=== PATIENT | female | born 1970 | race American Indian/Alaskan Native ===

== ENCOUNTER 2017-05-08 00:40 | Inpatient (IN) | payer MEDICAID, OTHER ==
--- NOTE | 2017-05-08 01:00 | C.PDOC ---
History Of Present Illness 46 year old female with Hx of depression and SI is transferred from [facility] for psychiatric admission. Per the medical records at [place] patient presented to the ED with SI. Patient reported that indeations began today, reporting a plan to drink antifreeze. Patient reports similar ideations in the past. Patient denies any injuries at this time. Patient denies HI, hallucinations, and all other complaints at this time. Time Seen by Provider: 05/08/17 00:56 Chief Complaint (Nursing): Psychiatric Evaluation History Per: Other ([facility]) History/Exam Limitations: no limitations Onset/Duration Of Symptoms: Hrs Current Symptoms Are (Timing): Still Present Suicide/Self Injury Attempted (Context): Ingestion Modifying Factor(s): None Associated Symptoms: Depression, Suicidal Thoughts, Suicidal Plan Involuntary Hold By: None Recent travel outside of the [place]: No Additional History Per: EMS, Other ([facility]) Past Medical History Reviewed: Historical Data, Nursing Documentation, Vital Signs Vital Signs: Last Vital Signs Temp 98.8 F 05/08/17 00:42 Pulse 65 05/08/17 00:42 Resp 20 05/08/17 00:42 BP 110/74 05/08/17 00:42 Pulse Ox 100 05/08/17 01:04 - Medical History PMH: Depression Surgical History: Appendectomy, Cholecystectomy Family History: States: Unknown Family Hx - Social History Hx Alcohol Use: Yes Hx Substance Use: Yes - Immunization History Hx Tetanus Toxoid Vaccination: No Hx Influenza Vaccination: No Hx Pneumococcal Vaccination: No Review Of Systems Constitutional: Negative for: Fever, Chills Cardiovascular: Negative for: Chest Pain, Palpitations Respiratory: Negative for: Cough, Shortness of Breath Gastrointestinal: Negative for: Nausea, Vomiting, Abdominal Pain Musculoskeletal: Negative for: Back Pain Skin: Negative for: Rash Neurological: Negative for: Weakness, Numbness, Headache, Dizziness Psych: Positive for: Depression, Suicidal ideation Physical Exam - Physical Exam Appears: Non-toxic, Other (anxious) Skin: Normal Color, Warm, Dry Head: Atraumatic, Normacephalic Eye(s): bilateral: Normal Inspection, PERRL, EOMI Nose: No Discharge, No Deformity Oral Mucosa: Moist Neck: Normal ROM, Supple Chest: Symmetrical Cardiovascular: Rhythm Regular, No Murmur Respiratory: Normal Breath Sounds, No Rales, No Rhonchi, No Wheezing Gastrointestinal/Abdominal: Soft, No Tenderness, No Distention, No Rebound Extremity: Normal ROM, No Pedal Edema, No Calf Tenderness, No Deformity, No Swelling Neurological/Psych: Oriented x3, Normal Speech, Normal Cognition, Other (having thoughts of suicide) Gait: Steady ED Course And Treatment O2 Sat by Pulse Oximetry: 100 (On RA) Pulse Ox Interpretation: Normal Medical Decision Making Medical Decision Making: Patient is transferred from [place] for admission to [facility]. Disposition - Disposition Forms: [employer] (Occ[place]) - Scribe Statement The provider has reviewed the documentation as recorded by the Scribe Saúl Can All medical record entries made by the Scribe were at my direction and personally dictated by me. I have reviewed the chart and agree that the record accurately reflects my personal performance of the history, physical exam, medical decision making, and the department course for this patient. I have also personally directed, reviewed, and agree with the discharge instructions and disposition.
--- NOTE | 2017-05-08 01:43 | PCM.BM ---
<Mayuri Puente - Last Filed: 05/08/17 01:41> Treatment Plan Problems - Problems identified on initial assessmt Suicidal Ideation Date Initiated: 05/08/17 Time Initiated: 01:30 Assessment reference: NA Status: Active Depression Date Initiated: 05/08/17 Time Initiated: 01:30 Assessment reference: NA Status: Active Substance Abuse Date Initiated: 05/08/17 Time Initiated: 01:30 Assessment reference: NA Status: Active Treatment assets and liabiliti Patient Assests: cooperative, ADL independent, negotiates basic needs, cognitively intact Patient Liabilities: financial problems, relationship conflicts, substance abuse - Milieu Protocol Maintain good personal hygiene: daily Encourage regular showers, daily Remind patient to perform daily oral care, daily Assist patient to perform ADL's Conduct patient checks and document Observation sheet: Q15 minutes Maintain personal safety: every shift Educate patient to report safety concerns to staff, every shift Monitor environment for contraband/sharps Medication safety: Monitor for expected outcome, potential side effects: every shift, Assess barriers to learning: every shift, Assess readiness for medication education: every shift <Jennifer Echeverria - Last Filed: 05/09/17 10:52> Family Contact Family involvement: Famliy/SO not involved - Goals for Treatment Patient goals for treatment: "I need a place to live." Discharge/Continuing Care - Education Needs Education Needs: Patient Medication, Patient Coping Skills, Patient Placement options, Patient Community resources - Discharge Discharge Criteria: Tolerates medication w/o severe side effects, Free of Suicidal thoughts, No longer exhibiting s/s of withdrawal Discharge to:: Home - Treatment Team Participation Discussed with Family/SO: No Was Patient/Family/SO present at Treatment Team Meeting: Yes <Diya Pickett - Last Filed: 05/09/17 13:24> - Diagnosis (1) Depression, major, severe recurrence Status: Acute Interventions: 05/09/17 13:24 * Assess/adjust medications daily and /or as needed * See patient on an individual basis 7x/week to assess symptoms of depression * Monitor for side effects & effectiveness of medications * (2) Cocaine use disorder, severe, dependence Status: Acute Interventions: 05/09/17 13:24 * Assess 7x/week regarding severity of withdrawal * Educate regarding risks, benefits, side effects and alternatives of medications * Use Motivational Interviewing for abstinence * Use CBT for relapse prevention * Medication management for withdrawal symptoms * Encourage medication assisted treatment *
--- NOTE | 2017-05-08 16:46 | PCM.PSYCH ---
Initial Psychiatric Evaluation - Initial Psychiatric Evaluation Type of Admission: Voluntary Legal Status: Capacity Chief Complaint (in patient's own words): "I'm depressed" History of Present Illness and Precipitating Events: This is a 46 yo AAF with no medical history and was transferred from [facility] to our inpatient unit for depression and SI. Pt is unemployed, homeless, lost her apartment adn her belonging. Pt. reproted depressed mood, anhedonia, insomnia, weight loss, psychomotor agitation, psychomotor retardation , fatigue, guilt, recurrent thoughts of with the plan drink antifreeze. Pt stated that after admission to inpatient unit she is feeling safe and contracted for safety. She also reported that she had recent breakup with her BF. She reported that she is smoking crack since age of 25 on daily basis. Patient denied anxiety issues when she goes out of the home. She denied panic attack symptoms. Pt. denied any periods of abnormally & persistent elevated expansive or irritable mood and persistently increased goal-directed activity or energy, for 1-weeks duration present most of the day nearly every day. He denied any grandiosity, increased talkativeness, flight of ideas, racing thoughts, distractibility, or increase in goal directed activities; so there is no concern of kyle Pt. stated that she had paranoid delusions, that unknown people will hurt her. She denied hallucinations, ideas of reference. No disorganization of speech, or catatonic behavior observed. There is no concern for perceptual disturbances. Pt. denied sexual abuse in the past. Current Medications: Active Medications Generic Name Dose Route Start Last Admin Trade Name Freq PRN Reason Stop Dose Admin Aripiprazole 5 mg 05/08/17 12:15 05/08/17 13:11 Abilify PO 5 mg DAILY ANASTACIO Administration Bupropion HCl 100 mg 05/08/17 18:00 Wellbutrin PO BID ANASTACIO Emollient Ointment 0 gm 05/08/17 13:17 Vaseline Oint TOP Q3H PRN Dry skin Gabapentin 100 mg 05/08/17 14:00 05/08/17 13:11 Neurontin PO 100 mg TID ANASTACIO Administration Hydroxyzine HCl 25 mg 05/08/17 12:04 Atarax PO Q6 PRN Anxiety Pneumococcal Polyvalent Vaccine 0.5 ml 05/11/17 10:00 Pneumovax 23 Vaccine IM 05/11/17 10:01 .ONCE ONE Past Psychiatric History - Past Psychiatric History Previous Treatment History: Inpatient Prior Psychiatric Treatment: multiple admission in the past including [facility] for depression Explanation of prior treatment: psychotropic meds including remeron, effexor, prozac, risperal etc History of Abuse: denied History of ETOH/Drug Use: She reported smoking crack started at the age of 21, multiple relapse. Last relapse around 2 months ago after breakup with NF, lost of housing, etc History of Family Illness: mother= depression Pertinent Medical Hx (Current Medical&Sleep Prob, Allergies): Allergies Allergy/AdvReac Type Severity Reaction Status Date / Time No Known Allergies Allergy Unverified 05/08/17 00:49 Effexor 05/08/17 Review of Systems - Review of Systems All systems: reviewed and no additional remarkable complaints except (Psych history) Mental Status Examination - Personal Presentation Personal Presentation: Looks older than stated age, Dressed appropriate to season - Affect Affect: Constricted, Depressed - Motor Activity Motor Activity: Calm, Psychomotor Agitation - Reliability in Providing Information Reliability in Providing Information: Good - Speech Speech: Organized - Mood Mood: Depressed - Formal Thought Process Formal Thought Process: No Impairment - Hallucinations/Delusions Hallucinations: Other (denied) Delusions: Other (denied) - Obsessions/Compulsions Obsessions: No Compulsions: No - Cognitive Functions Orientation: Person, Place, Situation, Time Sensorium: Alert Attention/Concentration: Attentive Abstract Thinking: [place] Estimate of Intelligence: Average Judgement: Intact, as evidence by: Good judgement, Intact, as evidence by: Insight regarding need for hospitalization Memory: Recent intact, as evidence by: Ability to recall events of the day - Risk Risk: Suicidal (but no intent or plan) - Strength & Assets Inventory Strength & Assets Inventory: Intelligence, Family support, Education, Employment history, Skills, Cooperative - Limitations Limitations: Other (chronic drugs use) DSM 5 DX - DSM 5 DSM 5 Diagnosis: MDD recurrent severe, with psychotic features Cocaine use d/o severe, dependence, etc - Recommended/Plan of Treatment Treatment Recommendations and Plan of Treatment: Continue current management and medications. Patient educated about risks, benefits, side effects & alternatives of meds. Pt verbalized understanding & agreed with the above.~ Therapy in milieu. Supportive therapy was provided Projected ELOS: 5-7 days Discharge Plan and Discharge Criteria: after stabilization on meds and therapy. - Smoking Cessation Smoking Cessation Initiated: Yes
[2017-05-08] MEDS: Petrolatum Oint Foilpak (5 gm) TOP PRN (17:37)
--- NOTE | 2017-05-09 10:46 | PCM.PYCHPN ---
Psychiatric Progress Note - Psychiatric Progress Note Patient seen today, length of contact: 18 min Patient Chief Complaint: "I am confused" Problems Identified/Issues Discussed: The pt is seen, chart reviewed, case discussed with staff. Support given, CBT and [place] used briefly No new symptoms reported, improving very slowly and needs more time No SEs from medications, risks discussed. However, she is very picky on meds and refused some She is fixated on her homelessness situation and looks clearly anxious After care discussed Medication Change: Yes (rosa m and jinny) Medical Record Reviewed: Yes Mental Status Examination - Cognitive Function Orientation: Person, Place, Situation, Time Memory: Intact Attention: Poor Concentration: Poor Association: WNL Fund of Knowledge: WNL - Mood Mood: Depressed - Affect Affect: Constricted, Depressed - Speech Speech: Appropriate - Formal Thought Process Formal Thought Process: No Impairment - Suicidal Ideation Suicidal Ideation: No - Homicidal Ideation Homicidal Ideation: No Goal/Treatment Plan - Goal/Treatment Plan Need for Continued Stay: Discharge may exacerbated symptoms, Severe functional impairment Progress Toward Problem(s) and Goals/Treatment Plan: Continue medications Support and psychoeducation daily Attend groups and activities daily After care planning by IJEOMA
--- NOTE | 2017-05-10 13:04 | PCM.PYCHPN ---
Psychiatric Progress Note - Psychiatric Progress Note Patient seen today, length of contact: 15 min Patient Chief Complaint: "I am depressed" Problems Identified/Issues Discussed: The pt is seen, chart reviewed, case discussed with staff. Support given, CBT and [place] used briefly No new symptoms reported, improving slowly and needs more time No SEs from medications, risks discussed. After care discussed, wants rehab She is low [place] and evasive Medication Change: No Medical Record Reviewed: Yes Mental Status Examination - Cognitive Function Orientation: Person, Place, Situation, Time Memory: Intact Attention: Poor Concentration: Poor Association: WNL Fund of Knowledge: WNL - Mood Mood: Depressed - Affect Affect: Constricted, Depressed - Speech Speech: Appropriate - Formal Thought Process Formal Thought Process: No Impairment - Suicidal Ideation Suicidal Ideation: No - Homicidal Ideation Homicidal Ideation: No Goal/Treatment Plan - Goal/Treatment Plan Need for Continued Stay: Discharge may exacerbated symptoms, Severe functional impairment Progress Toward Problem(s) and Goals/Treatment Plan: Continue medications Support and psychoeducation daily Attend groups and activities daily After care planning by IJEOMA
[2017-05-10 13:55] LABS: EOS # 0.3 K/uL (0.0-0.7); EOS % 5.9 % (0.0-4.0); HEMATOCRIT 34.6 % (34.0-47.0); LYMPH % 40.5 % (20.0-40.0); MEAN CELL VOLUME 88.5 fL (81.0-99.0); MEAN CORPUSCULAR HEMOGLOBIN 29.1 pg (27.0-31.0); MEAN CORPUSCULAR HGB CONC 32.8 g/dL (33.0-37.0); MEAN PLATELET VOLUME 8.3 fL (7.2-11.7); MONO # 0.5 K/uL (0.0-0.8); MONO % 11.2 % (0.0-10.0); RED CELL DISTRIBUTION WIDTH 16.2 % (11.5-14.5); WHITE BLOOD COUNT 4.9 K/uL (4.8-10.8)
[2017-05-10 14:07] LABS: ALKALINE PHOSPHATASE 58 U/L (38-126); ALT/SGPT 36 U/L (9-52); AST/SGOT 16 U/L (14-36); BILIRUBIN,TOTAL 0.6 mg/dL (0.2-1.3); BLOOD UREA NITROGEN 12 mg/dL (7-17); CALCIUM 8.4 mg/dl (8.6-10.4); CARBON DIOXIDE 30 mmol/L (22-30); CHLORIDE 98 mmol/L (98-107); GFR AFRICAN-AMERICAN > 60; GLUCOSE,RANDOM 77 mg/dL (65-105); POTASSIUM 3.8 mmol/L (3.6-5.2); SODIUM 134 mmol/L (132-148); TOTAL PROTEIN 7.6 g/dL (6.3-8.3)
[2017-05-10 14:15] LABS: RBC URINE 1 /hpf (0-3); URINE BILIRUBIN NEGATIVE (NEGATIVE); URINE BLOOD NEGATIVE (NEGATIVE); URINE COLOR Straw (YELLOW); URINE GLUCOSE (UA) NORMAL (Normal); URINE KETONE NEGATIVE (NEGATIVE); URINE LEUKOCYTE ESTERASE NEG Leu/uL (Negative); URINE PROTEIN NEGATIVE (NEGATIVE); URINE UROBILINOGEN NORMAL mg/dL (0.2-1.0); WBC URINE 1 /hpf (0-5)
[2017-05-10 14:39] LABS: THYROID STIMULATING HORMONE 1.37 mIU/L (0.46-4.68)
[2017-05-10] MEDS: Petrolatum Oint Foilpak (5 gm) TOP PRN (19:03)
[2017-05-11] MEDS ORDERED: Influenza Vaccine 60 mcg/0.5 mL SYR (4YR UP) IM ONE (10:00)
[2017-05-11] MEDS ORDERED: Pneumococcal 23-Valent Vaccine IM ONE (10:00)
--- NOTE | 2017-05-11 18:00 | PCM.PYCHPN ---
Psychiatric Progress Note - Psychiatric Progress Note Patient seen today, length of contact: 16 min Patient Chief Complaint: "Better" Problems Identified/Issues Discussed: The pt is seen, chart reviewed, case discussed with staff. Support given, CBT and [place] used briefly again No new symptoms reported, improving slowly and needs more time No SEs from medications, risks discussed. After care discussed, still interested in rehab but would skip if she could get housing secured. [place] used re relapse risk Medication Change: Yes (meds increased) Medical Record Reviewed: Yes Mental Status Examination - Cognitive Function Orientation: Person, Place, Situation, Time Memory: Intact Attention: Poor Concentration: Poor Association: WNL Fund of Knowledge: WNL - Mood Mood: Depressed - Affect Affect: Constricted, Depressed - Speech Speech: Appropriate - Formal Thought Process Formal Thought Process: No Impairment - Suicidal Ideation Suicidal Ideation: No - Homicidal Ideation Homicidal Ideation: No Goal/Treatment Plan - Goal/Treatment Plan Need for Continued Stay: Discharge may exacerbated symptoms, Severe functional impairment Progress Toward Problem(s) and Goals/Treatment Plan: Continue medications Support and psychoeducation daily Attend groups and activities daily After care planning by IJEOMA - referred to some rehabs
--- NOTE | 2017-05-12 14:20 | PCM.PYCHPN ---
Psychiatric Progress Note - Psychiatric Progress Note Patient seen today, length of contact: 16 min Patient Chief Complaint: "Abdominal pain, real bad" Problems Identified/Issues Discussed: The pt is seen, chart reviewed, case discussed with staff. The pt is compliant with medications and reports no side-effects. Symptoms are improving but needs more time to stabilize. After care discussed, support and psychoeducation given. Medication Change: No Medical Record Reviewed: Yes Mental Status Examination - Cognitive Function Orientation: Person, Place, Situation, Time Memory: Intact Attention: Poor Concentration: Poor Association: WNL Fund of Knowledge: WNL - Mood Mood: Depressed - Affect Affect: Constricted, Depressed - Speech Speech: Appropriate - Formal Thought Process Formal Thought Process: No Impairment - Suicidal Ideation Suicidal Ideation: No - Homicidal Ideation Homicidal Ideation: No Goal/Treatment Plan - Goal/Treatment Plan Need for Continued Stay: Discharge may exacerbated symptoms, Severe functional impairment Progress Toward Problem(s) and Goals/Treatment Plan: Continue medications Support and psychoeducation daily Attend groups and activities daily After care planning by SW - referred to some rehabs, ie [facility]
--- NOTE | 2017-05-12 17:16 | US ---
HISTORY: Patient has lower abdomen pain COMPARISON: None available. TECHNIQUE: Real-time transabdominal pelvic ultrasound was performed. In addition a transvaginal pelvic ultrasound was necessary to better depict pelvic anatomy. FINDINGS: UTERUS: Measures 10.2 x 5.3 x 6.2 cm. Anteverted. 0.9 x 0.9 x 1.1 cm mid tiny uterine fibroid. ENDOMETRIUM: Measures 6 mm in diameter. CERVIX: No cervical abnormality identified. RIGHT OVARY: Measures 3.9 x 2.8 x 3.6 cm. Blood flow is demonstrated. LEFT OVARY: Measures 3.6 x 2.1 x 2.6 cm. Blood flow is demonstrated. FREE FLUID: No significant free fluid noted. OTHER FINDINGS: None. IMPRESSION: Tiny probable uterine fibroid measures approximately 1.1 cm, mid uterus.
[2017-05-13] MEDS ORDERED: Ergocalciferol 50,000 Intl Units Cap PO SCH (10:00)
--- NOTE | 2017-05-13 12:32 | PCM.PYCHPN ---
Psychiatric Progress Note - Psychiatric Progress Note Patient seen today, length of contact: 16 min Patient Chief Complaint: "Nervous about what I will do" Problems Identified/Issues Discussed: The pt is seen, chart reviewed, case discussed with staff. Support given, CBT and [place] used briefly No new symptoms reported, improving slowly and needs more time No SEs from medications, risks discussed. After care discussed - rehab pending still no news yet. She is Ok with waiting as she is still depressed. She will look into staying with her father if she cannot go to a rehab Medication Change: No Medical Record Reviewed: Yes Mental Status Examination - Cognitive Function Orientation: Person, Place, Situation, Time Memory: Intact Attention: Poor Concentration: Poor Association: WNL Fund of Knowledge: WNL - Mood Mood: Depressed - Affect Affect: Constricted, Depressed - Speech Speech: Appropriate - Formal Thought Process Formal Thought Process: No Impairment - Suicidal Ideation Suicidal Ideation: No - Homicidal Ideation Homicidal Ideation: No Goal/Treatment Plan - Goal/Treatment Plan Need for Continued Stay: Discharge may exacerbated symptoms, Severe functional impairment Progress Toward Problem(s) and Goals/Treatment Plan: Continue medications Support and psychoeducation daily Attend groups and activities daily After care planning by SW - referred to some rehabs, ie [facility]
--- NOTE | 2017-05-14 14:52 | PCM.PYCHPN ---
Psychiatric Progress Note - Psychiatric Progress Note Patient seen today, length of contact: 16 min Patient Chief Complaint: "I'm feeling better " Problems Identified/Issues Discussed: Patient was seen. Chart was reviewed important content noted. Nurse input received the patient is doing better and has no issues. Patient has no new complaints. No events overnight. Patient slept well and is eating well. Patient denies any depressive symptoms. Denies suicidal or homicidal ideations. Patient reports improvement in hallucinations. No delusions elicited. No paranoia elicited. Patient has remained in good clinical and behavioral control. Symptoms are improving, but needs more time to stabilize. Patient is finding medications beneficial and would like to continue with treatment plan. Patient appreciated that treatment team is trying to help. Medical Problems: psychotropic meds including remeron, effexor, prozac, risperal etc Medication Change: No Medical Record Reviewed: Yes Mental Status Examination - Cognitive Function Orientation: Person, Place, Situation, Time Memory: Intact Attention: Poor Concentration: Poor Association: WNL Fund of Knowledge: WNL - Mood Mood: Depressed - Affect Affect: Constricted, Depressed - Speech Speech: Appropriate - Formal Thought Process Formal Thought Process: Hallucinations Psychotic Thoughts and Behaviors: Patient reported improvement in auditory hallucinations Additional comments: Calm and cooperative, fair grooming - Suicidal Ideation Suicidal Ideation: No - Homicidal Ideation Homicidal Ideation: No Goal/Treatment Plan - Goal/Treatment Plan Need for Continued Stay: Discharge may exacerbated symptoms, Severe functional impairment Progress Toward Problem(s) and Goals/Treatment Plan: Continue current management and medications. Patient educated about risks, benefits, side effects & alternatives of meds. Pt verbalized understanding & agreed with the above.~ Therapy in milieu. Supportive therapy was provided Estimated Date of D/C: 05/17/17 - Smoking Cessation Smoking Cessation Initiated: Yes
--- NOTE | 2017-05-15 12:25 | PCM.PYCHPN ---
Psychiatric Progress Note - Psychiatric Progress Note Patient seen today, length of contact: 16 min Patient Chief Complaint: "I still have back pain" Problems Identified/Issues Discussed: The pt is seen, chart reviewed, case discussed with staff. She is somatically preoccupied, thinks she has a lump in her back. She doesn't. She was previously focused on lower abd pain, for which USG done and now it's gone She is accepted by [facility] for Tuesday admission Support given, [place] used Still odd, depressed but not suicidal Medication Change: Yes (flexeril) Medical Record Reviewed: Yes Mental Status Examination - Cognitive Function Orientation: Person, Place, Situation, Time Memory: Intact Attention: Poor Concentration: Poor Association: WNL Fund of Knowledge: WNL - Mood Mood: Depressed - Affect Affect: Constricted, Depressed - Speech Speech: Appropriate - Formal Thought Process Formal Thought Process: No Impairment - Suicidal Ideation Suicidal Ideation: No - Homicidal Ideation Homicidal Ideation: No Goal/Treatment Plan - Goal/Treatment Plan Need for Continued Stay: Discharge may exacerbated symptoms, Severe functional impairment Progress Toward Problem(s) and Goals/Treatment Plan: Continue medications Support and psychoeducation daily Attend groups and activities daily Transfer to [facility] Estimated Date of D/C: 05/17/17
--- NOTE | 2017-05-16 18:00 | PCM.PYCHPN ---
Psychiatric Progress Note - Psychiatric Progress Note Patient seen today, length of contact: 16 min Patient Chief Complaint: "I'm feeling better" Problems Identified/Issues Discussed: Patient was seen. Chart was reviewed important content noted. Nurse input received the patient is doing better and has no issues. Patient has no new complaints. No events overnight. Pt is preoccupied with somatic complaints. Pt rescind her 48 hour signout notice. Pt wants to be d/c by tomorrow. she is [facility] and she wants to start it by Tuesday. She wants to d/c to her father home. Patient slept well and is eating well. Patient denies any depressive symptoms. Denies suicidal or homicidal ideations. Patient reports improvement in hallucinations. No delusions elicited. No paranoia elicited. Patient has remained in good clinical and behavioral control. Symptoms are improving, but needs more time to stabilize. Patient is finding medications beneficial and would like to continue with treatment plan. Patient appreciated that treatment team is trying to help. Medical Problems: psychotropic meds including remeron, effexor, prozac, risperal etc Medication Change: Yes (flexeril) Medical Record Reviewed: Yes Mental Status Examination - Cognitive Function Orientation: Person, Place, Situation, Time Memory: Intact Attention: WNL Concentration: WNL Association: WNL Fund of Knowledge: [facility] Decription of patient's judgement and insights: fair/fair Addtional comments: cooperative - Mood Mood: Anxious - Affect Affect: Constricted, Depressed - Speech Speech: Appropriate - Formal Thought Process Formal Thought Process: No Impairment Psychotic Thoughts and Behaviors: denied - Suicidal Ideation Suicidal Ideation: No Plan: denied - Homicidal Ideation Homicidal Ideation: No Plan: denied Goal/Treatment Plan - Goal/Treatment Plan Need for Continued Stay: Discharge may exacerbated symptoms, Severe functional impairment Progress Toward Problem(s) and Goals/Treatment Plan: Continue current management and medications. Patient educated about risks, benefits, side effects & alternatives of meds. Pt verbalized understanding & agreed with the above.~ Therapy in milieu. Supportive therapy was provided Plan to d/c tomorrow after obtaining collateral history from father Estimated Date of D/C: 05/17/17 - Smoking Cessation Smoking Cessation Initiated: Yes
[2017-05-17 06:06] VITALS: BP 118/73; PULSE 76; RESP 20; TEMP 97.9; O2SAT 97
--- NOTE | 2017-05-17 14:49 | PCM.PYCHDC ---
Mental Status Examination - Mental Status Examination Orientation: Person, Place, Situation, Time Memory: Intact Mood: Neutral Affect: Other (Appropriate) Speech: Appropriate Attention: WNL Concentration: WNL Association: WNL Fund of Knowledge: WNL Formal Thought Process: No Impairment Description of patient's judgement and insight: Fair Psychotic Thoughts and Behaviors: None Suicidal Ideation: No Current Homicidal Ideation?: No Discharge Summary - Discharge Note Reason for Hospitalization: Major depressive disorder recurrent with psychotic features Cocaine use disorder severe Laboratory Data: Reviewed Consultations:: List each consultation separately and include: 1. Reason for request. 2. Findings. 3. Follow-up Summary of Hospital Course include:: 1. Description of specific treatment plan utilized for patients during their course of treatmen. 2. Summarize the time- course for resolution of acute symptoms and/or regressed behaviors. 3. Describe issues identified and worked on during hospitalization. 4. Describe medication utilized. 5. Describe medical problems identified and treated. 6. Reassessment of suicide risk Summary of Hospital Course: This is a 46 yo AAF with no medical history and was transferred from [facility] to our inpatient unit for depression and SI. Pt is unemployed, homeless, lost her apartment adn her belonging. Pt. reproted depressed mood, anhedonia, insomnia, weight loss, psychomotor agitation, psychomotor retardation , fatigue, guilt, recurrent thoughts of with the plan drink antifreeze. Pt stated that after admission to inpatient unit she is feeling safe and contracted for safety. She also reported that she had recent breakup with her BF. She reported that she is smoking crack since age of 25 on daily basis. Patient denied anxiety issues when she goes out of the home. She denied panic attack symptoms. Pt. denied any periods of abnormally & persistent elevated expansive or irritable mood and persistently increased goal-directed activity or energy, for 1-weeks duration present most of the day nearly every day. He denied any grandiosity, increased talkativeness, flight of ideas, racing thoughts, distractibility, or increase in goal directed activities; so there is no concern of kyle Pt. stated that she had paranoid delusions, that unknown people will hurt her. She denied hallucinations, ideas of reference. No disorganization of speech, or catatonic behavior observed. There is no concern for perceptual disturbances. Pt. denied sexual abuse in the past. While in the hospital patient was treated with Abilify, mirtazapine, gabapentin , trazodone and other when necessary medications. With the above treatment and other therapy on the unit patient started feeling better. Patient signed 48 hour notice for discharge ending today. Today patient was stable for discharge. At the time of evaluation and discharge, patient was awake alert oriented 3, had no delusions, no auditory or visual hallucinations , no suicidal ideations or homicidal ideations. Patient was discharged in a stable condition. Patient will [facility] after discharge from the hospital. - Final Diagnosis (DSM 5) Condition upon Discharge: GOOD Disposition: HOME/ ROUTINE Prescriptions/Medication Reconciliation: ARIPiprazole [Abilify] 10 mg PO DAILY #30 tab Gabapentin [Neurontin] 300 mg PO TID #90 cap Mirtazapine [Remeron] 30 mg PO HS #30 tab traZODone [Desyrel] 50 mg PO HS PRN #30 tab PRN Reason: Insomnia - Smoking Cessation Smoking Cessation Medication prescribed: Yes - Antipsychotic Medications Pt discharged on 2 or more routine antipsychotic medications: No
== END 2017-05-17 12:15 | disposition home or self-care (01) | DRG 430 ==
LOC: C.ER 00:40 → C.5E 00:59
DX: F33.3 Major depressive disorder, recurrent, severe with psychotic symptoms (principal); F14.20 Cocaine dependence, uncomplicated; G47.00 Insomnia, unspecified

== ENCOUNTER 2017-06-15 12:23 | Inpatient (IN) | payer MEDICAID ==
[2017-06-15 12:55] LABS: BASO # 0.1 K/uL (0.0-0.2); BASO % 1.2 % (0.0-2.0); EOS # 0.5 K/uL (0.0-0.7); EOS % 11.9 % (0.0-4.0); LYMPH # 1.7 K/uL (1.0-4.3); LYMPH % 36.5 % (20.0-40.0); MEAN CORPUSCULAR HEMOGLOBIN 29.2 pg (27.0-31.0); MEAN CORPUSCULAR HGB CONC 33.2 g/dL (33.0-37.0); MEAN PLATELET VOLUME 8.3 fL (7.2-11.7); MONO # 0.6 K/uL (0.0-0.8); MONO % 13.3 % (0.0-10.0); NEUT # 1.7 K/uL (1.8-7.0); NEUT % 37.1 % (50.0-75.0); NRBC % 0.2 % (0.0-2.0); RBC 3.75 Mil/uL (3.80-5.20); RED CELL DISTRIBUTION WIDTH 16.7 % (11.5-14.5); WHITE BLOOD COUNT 4.5 K/uL (4.8-10.8)
[2017-06-15 13:23] LABS: ALB/GLOB RATIO 1.3 (1.0-2.1); ALBUMIN 3.7 g/dL (3.5-5.0); ALT/SGPT 29 U/L (9-52); AST/SGOT 20 U/L (14-36); BLOOD UREA NITROGEN 10 mg/dL (7-17); CALCIUM 8.8 mg/dl (8.6-10.4); GFR AFRICAN-AMERICAN > 60; GFR NON-AFRICAN AMERICAN > 60
[2017-06-15] MEDS ORDERED: Naproxen 550 mg Tab PO STA (13:28)
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
[2017-06-15] MEDS ORDERED: Naproxen 550 mg Tab PO ONE (14:21)
[2017-06-15 14:44] LABS: SQUAMOUS EPITHIAL 2 /hpf (0-5); URINE BACTERIA RARE (<OCC); URINE BILIRUBIN NEGATIVE (NEGATIVE); URINE BLOOD NEGATIVE (NEGATIVE); URINE CLARITY Clear (Clear); URINE COLOR Yellow (YELLOW); URINE GLUCOSE (UA) NORMAL (Normal); URINE LEUKOCYTE ESTERASE NEG Leu/uL (Negative); URINE NITRATE NEGATIVE (NEGATIVE); URINE PROTEIN NEGATIVE (NEGATIVE)
[2017-06-15 15:00] LABS: BARBITURATES, UR NEGATIVE (NEGATIVE); BENZODIAZEPINES, UR NEGATIVE (NEGATIVE); OPIATES, UR NEGATIVE (NEGATIVE); PHENCYCLIDINE, UR NEGATIVE (NEGATIVE)
--- NOTE | 2017-06-15 19:58 | PCM.BM ---
<SharathCandace - Last Filed: 06/15/17 19:57> Treatment Plan Problems - Problems identified on initial assessmt Suicidal Ideation Date Initiated: 06/15/17 Time Initiated: 17:05 Assessment reference: NA Status: Monitor Depression Date Initiated: 06/15/17 Time Initiated: 17:05 Assessment reference: NA Status: Active Treatment assets and liabiliti Patient Assests: cooperative, ADL independent, negotiates basic needs, cognitively intact Patient Liabilities: poor support system, substance abuse (Crack cocaine) - Milieu Protocol Maintain good personal hygiene: daily Encourage regular showers, daily Remind patient to perform daily oral care Conduct patient checks and document Observation sheet: Q15 minutes Maintain personal safety: every shift Educate patient to report safety concerns to staff, every shift Monitor environment for contraband/sharps Medication safety: Monitor for expected outcome, potential side effects: every shift, Assess barriers to learning: every shift, Assess readiness for medication education: every shift <Debbie Warren - Last Filed: 06/17/17 11:08> - Diagnosis (1) Depression, major, severe recurrence Status: Acute Interventions: 06/17/17 11:07 * Assess/adjust medications daily and /or as needed * See patient on an individual basis 7x/week to assess symptoms of depression * Monitor for side effects & effectiveness of medications * (2) Cocaine use disorder, severe, dependence Status: Acute Interventions: 06/17/17 11:08 * Assess 7x/week regarding severity of withdrawal * Educate regarding risks, benefits, side effects and alternatives of medications * Use Motivational Interviewing for abstinence * Use CBT for relapse prevention * Medication management for withdrawal symptoms * Encourage medication assisted treatment * <Jennifer Echeverria - Last Filed: 06/17/17 11:13> Family Contact Family involvement: Famliy/SO not involved - Goals for Treatment Patient goals for treatment: "I need a halfway." Discharge/Continuing Care - Education Needs Education Needs: Patient Medication, Patient Coping Skills, Patient Placement options, Patient Community resources - Discharge Discharge Criteria: Tolerates medication w/o severe side effects, No longer exhibiting s/s of withdrawal, Reduction of target symptoms Discharge to:: Long Term - Treatment Team Participation Discussed with Family/SO: No Was Patient/Family/SO present at Treatment Team Meeting: Yes
--- NOTE | 2017-06-16 11:35 | PCM.PSYCH ---
Initial Psychiatric Evaluation - Initial Psychiatric Evaluation Type of Admission: Voluntary Legal Status: Capacity Chief Complaint (in patient's own words): "I wanted to hurt myself" History of Present Illness and Precipitating Events: Patient is a 47 year old AA female who was admitted for suicidal ideation and depression. She is currently single, has 3 children, and is homeless. She is unemployed. Patient states she wished to end her life because she felt hopeless. She recently became homeless. Additionally, all her personal belongings and ID were locked in her storage unit which she can not access until she pays a fee of $ 120. She states the two issues amplified her depression and made her wish to harm herself. The patient reports depressed mood, now vague thoughts of harming herself, anhedonia, insomnia, and fatigue. Patient also reports auditory hallucinations of demons speaking to her. Denies visual hallucinations, paranoia , anxiety. She contracts for safety She has battled depression ''for months." She states she has attempted suicide three times prior to this instance. She recently was hospitalized here on April 2017 for the same reason. Following discharge she stopped taking medication. Patient states she has been in and out of multiple hospitals for depression since discharge. Patient reports a history of crack cocaine use. She smokes it daily and uses " as much as I can afford." She denies opioids, benzodiazepines, alcohol, tobacco products. She has never been to a detox or rehab program in the past. Currently she reports psychomotor agitation and sweating. PMH: Denies Past psych hx: Major depressive disorder chronic. Several past admissions Family psych hx: Mother had depression Current Medications: Active Medications Generic Name Dose Route Start Last Admin Trade Name Freq PRN Reason Stop Dose Admin Acetaminophen 650 mg 06/15/17 16:40 Tylenol 325mg Tab PO Q6 PRN Fever >100.4 F Aripiprazole 10 mg 06/17/17 18:00 Abilify PO QPM ANASTACIO Gabapentin 300 mg 06/16/17 18:00 Neurontin PO BID ANASTACIO Lorazepam 1 mg 06/15/17 16:40 Ativan PO Q6 PRN Anxiety Mirtazapine 30 mg 06/16/17 22:00 Remeron PO HS ANASTACIO Trazodone HCl 50 mg 06/16/17 22:00 Desyrel PO HS PRN Insomnia Past Psychiatric History - Past Psychiatric History Previous Treatment History: Inpatient Pertinent Medical Hx (Current Medical&Sleep Prob, Allergies): Allergies Allergy/AdvReac Type Severity Reaction Status Date / Time No Known Allergies Allergy Verified 06/15/17 12:43 ARIPiprazole [Abilify] 10 mg PO DAILY #30 tab 05/17/17 Gabapentin [Neurontin] 300 mg PO TID #90 cap 05/17/17 Escitalopram [Lexapro] 10 mg PO DAILY 06/15/17 Mirtazapine [Remeron] 15 mg PO HS 06/15/17 traZODone [Desyrel] 50 mg PO HS 06/15/17 Review of Systems - Review of Systems All systems: reviewed and no additional remarkable complaints except - Constitutional Constitutional: Sweats - Musculoskeletal Musculoskeletal: absent: Muscle Weakness - Neurological Neurological: UNREMARKABLE - Psychiatric Psychiatric: Anhedonia, Auditory Hallucinations, Confusion, Depression, Hopelessness, Suicidal Ideation. absent: Anxiety, Paranoia, Visual Hallucinations Mental Status Examination - Personal Presentation Personal Presentation: Looks stated age - Affect Affect: Constricted, Depressed - Motor Activity Motor Activity: Calm - Reliability in Providing Information Reliability in Providing Information: Fair - Speech Speech: Organized - Mood Mood: Depressed - Formal Thought Process Formal Thought Process: Hallucinations - Hallucinations/Delusions Hallucinations: Auditory - Cognitive Functions Orientation: Person, Place, Situation, Time Sensorium: Alert Attention/Concentration: Attentive Abstract Thinking: [place] Estimate of Intelligence: Below average Judgement: Imparied, as evidence by: Poor judgement Memory: Recent intact, as evidence by: Ability to recall events of the day, Remote intact, as evidenced by: Abilit to recall sig. life events - Risk Risk: Diminished functioning - Strength & Assets Inventory Strength & Assets Inventory: Cooperative - Limitations Limitations: Living alone DSM 5 DX - DSM 5 DSM 5 Diagnosis: Major depressive disorder, severe, recurrent, with psychotic sxs Cocaine use disorder, severe - Recommended/Plan of Treatment Treatment Recommendations and Plan of Treatment: Abilify 10mg daily Neurontin 300mg BID Remeron 30mg at night Attend groups and activities Individual therapy Psychoeducation and support Encourage compliance with meds and after care Refer to outpatient program Teach healthy lifestyle methods, i.e. diet, exercise, meditation 32 min Projected ELOS: 7 days - Smoking Cessation Smoking Cessation Initiated: Yes
--- NOTE | 2017-06-17 10:07 | PCM.PYCHPN ---
Psychiatric Progress Note - Psychiatric Progress Note Patient seen today, length of contact: 15 min Patient Chief Complaint: I am feeling depressed.' Problems Identified/Issues Discussed: Patient seen and evaluated, chart reviewed and discussed with the nurse. She reports depressed mood, poor seep and anhidonia. Patient remained isolated, confined and withdrawn. Patient also irritability and anxiety. Patient is compliant with medications and denies any side effects. Symptoms are improving but need more time to stabilize. Support and psychoeducation given. Medication Change: No Medical Record Reviewed: Yes Mental Status Examination - Cognitive Function Orientation: Person, Place, Situation, Time Memory: Intact Attention: WNL Concentration: Poor Association: WNL Fund of Knowledge: Poor - Mood Mood: Depressed - Affect Affect: Constricted, Depressed - Speech Speech: Soft - Formal Thought Process Formal Thought Process: Hallucinations - Suicidal Ideation Suicidal Ideation: No - Homicidal Ideation Homicidal Ideation: No Goal/Treatment Plan - Goal/Treatment Plan Need for Continued Stay: Severe depression anxiety, Severe functional impairment Progress Toward Problem(s) and Goals/Treatment Plan: Major depressive disorder, severe, recurrent, with psychotic sxs Cocaine use disorder, severe Abilify 10mg daily Neurontin 300mg BID Remeron 30mg at night Attend groups and activities Individual therapy Psychoeducation and support Encourage compliance with meds and after care Refer to outpatient program Teach healthy lifestyle methods, i.e. diet, exercise, meditation - Smoking Cessation Smoking Cessation Initiated: No
--- NOTE | 2017-06-18 16:37 | PCM.PYCHPN ---
Psychiatric Progress Note - Psychiatric Progress Note Patient seen today, length of contact: 15 min Patient Chief Complaint: I'm still feeling anxious. Problems Identified/Issues Discussed: Patient seen, chart reviewed, case discussed with the staff. Issues related to illness and treatment were discussed with the patient. Reported compliant with treatment with no adverse affects. Patient reported feeling anxiety. Requesting something for anxiety. At the time of evaluation, patient was awake alert oriented 3, had no delusions , no auditory or visual hallucinations, no suicidal ideations or homicidal ideations. Aftercare discussed with the patient. Patient wants to go to [facility] for follow-up care after discharge from the hospital. Medical Problems: None reported Diagnostic Results: Reviewed DSM 5 Symptoms Update: Some improvement with treatment. Medication Change: No Medical Record Reviewed: Yes Mental Status Examination - Cognitive Function Orientation: Person, Place, Situation, Time Memory: Intact Attention: WNL Concentration: WNL Association: WN Fund of Knowledge: [facility] Decription of patient's judgement and insights: Fair - Mood Mood: Depressed, Anxious - Affect Affect: Other (Appropriate) - Speech Speech: Appropriate, Soft - Formal Thought Process Formal Thought Process: No Impairment - Suicidal Ideation Suicidal Ideation: No - Homicidal Ideation Homicidal Ideation: No Goal/Treatment Plan - Goal/Treatment Plan Need for Continued Stay: Remain at risks for inpatient hospitalization, Discharge may exacerbated symptoms, Severe functional impairment Progress Toward Problem(s) and Goals/Treatment Plan: Patient education. Supportive therapy. Continue treatment as before. Patient wants to go to [facility] for follow-up care after discharge from the hospital. Estimated Date of D/C: 06/23/17 - Smoking Cessation Smoking Cessation Initiated: No
--- NOTE | 2017-06-19 12:59 | PCM.PYCHPN ---
Psychiatric Progress Note - Psychiatric Progress Note Patient seen today, length of contact: 15 min Patient Chief Complaint: I'm still feeling much better. Problems Identified/Issues Discussed: Patient seen, chart reviewed, case discussed with the staff. Issues related to illness and treatment were discussed with the patient. Reported compliant with treatment with no adverse affects. Patient reported feeling much better. Attending groups and other activities on the unit. At the time of evaluation, patient was awake alert oriented 3, had no delusions , no auditory or visual hallucinations, no suicidal ideations or homicidal ideations. Aftercare discussed with the patient. Patient wants to go to [facility] for follow-up care after discharge from the hospital. At the time of evaluation, patient was awake alert oriented 3. Denied any delusions, auditory or visual hallucinations, suicidal ideations or homicidal ideations. Medical Problems: None reported Diagnostic Results: Reviewed DSM 5 Symptoms Update: Improving with treatment. Medication Change: No Medical Record Reviewed: Yes Mental Status Examination - Cognitive Function Orientation: Person, Place, Situation, Time Memory: Intact Attention: WNL Concentration: WNL Association: WNL Fund of Knowledge: [facility] Decription of patient's judgement and insights: Fair - Mood Mood: Neutral - Affect Affect: Other (Appropriate) - Speech Speech: Appropriate, Soft - Formal Thought Process Formal Thought Process: No Impairment Psychotic Thoughts and Behaviors: None - Suicidal Ideation Suicidal Ideation: No - Homicidal Ideation Homicidal Ideation: No Goal/Treatment Plan - Goal/Treatment Plan Need for Continued Stay: Remain at risks for inpatient hospitalization, Discharge may exacerbated symptoms, Severe functional impairment Progress Toward Problem(s) and Goals/Treatment Plan: Patient education. Supportive therapy. Continue treatment as before. Patient wants to go to [facility] for follow-up care after discharge from the hospital. Estimated Date of D/C: 06/23/17 - Smoking Cessation Smoking Cessation Initiated: No
--- NOTE | 2017-06-20 11:01 | PCM.PYCHPN ---
Psychiatric Progress Note - Psychiatric Progress Note Patient seen today, length of contact: 15 min Patient Chief Complaint: I am feeling depressed.' Problems Identified/Issues Discussed: Patient seen and evaluated, chart reviewed and discussed with the nurse. She reports depressed mood, poor seep and anhidonia. Patient remained isolated, confined and withdrawn. Patient also irritability and anxiety. Patient is compliant with medications and denies any side effects. Symptoms are improving but need more time to stabilize. Support and psychoeducation given. Medication Change: No Medical Record Reviewed: Yes Mental Status Examination - Cognitive Function Orientation: Person, Place, Situation, Time Memory: Intact Attention: WNL Concentration: WNL Association: [facility] Fund of Knowledge: WN - Mood Mood: Neutral - Affect Affect: Other (Appropriate) - Speech Speech: Appropriate, Soft - Formal Thought Process Formal Thought Process: No Impairment - Suicidal Ideation Suicidal Ideation: No - Homicidal Ideation Homicidal Ideation: No Goal/Treatment Plan - Goal/Treatment Plan Need for Continued Stay: Remain at risks for inpatient hospitalization, Discharge may exacerbated symptoms, Severe functional impairment Progress Toward Problem(s) and Goals/Treatment Plan: Major depressive disorder, severe, recurrent, with psychotic sxs Cocaine use disorder, severe Abilify 10mg daily Neurontin 300mg BID Remeron 30mg at night Attend groups and activities Individual therapy Psychoeducation and support Encourage compliance with meds and after care Refer to outpatient program Teach healthy lifestyle methods, i.e. diet, exercise, meditation Estimated Date of D/C: 06/23/17
--- NOTE | 2017-06-21 22:15 | PCM.PYCHPN ---
Psychiatric Progress Note - Psychiatric Progress Note Patient seen today, length of contact: 15 min Patient Chief Complaint: I am feeling little better.' Problems Identified/Issues Discussed: Patient seen and evaluated, chart reviewed and discussed with the nurse. As per the staff, pt started coming out of her room and reports some improvement in her mood. She still appears depressed. She remained isolated, confined and withdrawn. Patient also reports irritability and anxiety. She denies any AVH. Patient is compliant with medications and denies any side effects. Symptoms are improving but need more time to stabilize. Support and psychoeducation given. Medication Change: No Medical Record Reviewed: Yes Mental Status Examination - Cognitive Function Orientation: Person, Place, Situation, Time Memory: Intact Attention: WNL Concentration: Poor Association: WNL Fund of Knowledge: Poor - Mood Mood: Neutral - Affect Affect: Other (Appropriate) - Speech Speech: Appropriate, Soft - Formal Thought Process Formal Thought Process: No Impairment - Suicidal Ideation Suicidal Ideation: No - Homicidal Ideation Homicidal Ideation: No Goal/Treatment Plan - Goal/Treatment Plan Need for Continued Stay: Remain at risks for inpatient hospitalization, Discharge may exacerbated symptoms, Severe functional impairment Progress Toward Problem(s) and Goals/Treatment Plan: Major depressive disorder, severe, recurrent, with psychotic sxs Cocaine use disorder, severe Abilify 10mg daily Neurontin 300mg BID Remeron 30mg at night Attend groups and activities Individual therapy Psychoeducation and support Encourage compliance with meds and after care Refer to outpatient program Teach healthy lifestyle methods, i.e. diet, exercise, meditation Estimated Date of D/C: 06/23/17 - Smoking Cessation Smoking Cessation Initiated: No
--- NOTE | 2017-06-22 23:13 | PCM.PYCHPN ---
Psychiatric Progress Note - Psychiatric Progress Note Patient seen today, length of contact: 15 min Patient Chief Complaint: I am feeling little better.' Problems Identified/Issues Discussed: Patient seen and evaluated, chart reviewed and discussed with the nurse. She remained isolated, confined and withdrawn. She reports some improvement in her irritability and anxiety. As per the staff, pt started coming out of her room and reports some improvement in her mood. She still appears depressed. She denies any AVH. She is looking forward to going to an IOP. Patient is compliant with medications and denies any side effects. Symptoms are improving but need more time to stabilize. Support and psychoeducation given. Medication Change: No Medical Record Reviewed: Yes Mental Status Examination - Cognitive Function Orientation: Person, Place, Situation, Time Memory: Intact Attention: WNL Concentration: Poor Association: WNL Fund of Knowledge: Poor - Mood Mood: Neutral - Affect Affect: Other (Appropriate) - Speech Speech: Appropriate, Soft - Formal Thought Process Formal Thought Process: No Impairment - Suicidal Ideation Suicidal Ideation: No - Homicidal Ideation Homicidal Ideation: No Goal/Treatment Plan - Goal/Treatment Plan Need for Continued Stay: Remain at risks for inpatient hospitalization, Discharge may exacerbated symptoms, Severe functional impairment Progress Toward Problem(s) and Goals/Treatment Plan: Major depressive disorder, severe, recurrent, with psychotic sxs Cocaine use disorder, severe Abilify 10mg daily Neurontin 300mg BID Remeron 30mg at night Attend groups and activities Individual therapy Psychoeducation and support Encourage compliance with meds and after care Refer to outpatient program Teach healthy lifestyle methods, i.e. diet, exercise, meditation Estimated Date of D/C: 06/23/17
--- NOTE | 2017-06-24 09:48 | PCM.BM ---
<KalinJennifer Huitron - Last Filed: 06/24/17 09:48> Treatment Plan Problems - Problems identified on initial assessmt Suicidal Ideation Date Initiated: 06/15/17 Time Initiated: 17:05 Assessment reference: NA Status: Monitor Depression Date Initiated: 06/15/17 Time Initiated: 17:05 Assessment reference: NA Status: Active Treatment assets and liabiliti Patient Assests: cooperative, ADL independent, negotiates basic needs, cognitively intact Patient Liabilities: poor support system, substance abuse (Crack cocaine) - Milieu Protocol Maintain good personal hygiene: daily Encourage regular showers, daily Remind patient to perform daily oral care Conduct patient checks and document Observation sheet: Q15 minutes Maintain personal safety: every shift Educate patient to report safety concerns to staff, every shift Monitor environment for contraband/sharps Medication safety: Monitor for expected outcome, potential side effects: every shift, Assess barriers to learning: every shift, Assess readiness for medication education: every shift Milieu Narrative: Major depressive disorder, severe, recurrent, with psychotic sxs Cocaine use disorder, severe Abilify 10mg daily Neurontin 300mg BID Remeron 30mg at night Attend groups and activities Individual therapy Psychoeducation and support Encourage compliance with meds and after care Refer to outpatient program Teach healthy lifestyle methods, i.e. diet, exercise, meditation Family Contact Family involvement: Famliy/SO not involved - Goals for Treatment Patient goals for treatment: "I need a [facility]." Discharge/Continuing Care - Education Needs Education Needs: Patient Medication, Patient Coping Skills, Patient Placement options, Patient Community resources - Discharge Discharge Criteria: Tolerates medication w/o severe side effects, No longer exhibiting s/s of withdrawal, Reduction of target symptoms Discharge to:: [facility] - Treatment Team Participation Patient/Family/SO Statement: Major depressive disorder, severe, recurrent, with psychotic sxs Cocaine use disorder, severe Abilify 10mg daily Neurontin 300mg BID Remeron 30mg at night Attend groups and activities Individual therapy Psychoeducation and support Encourage compliance with meds and after care Refer to outpatient program Teach healthy lifestyle methods, i.e. diet, exercise, meditation Discussed with Family/SO: No Was Patient/Family/SO present at Treatment Team Meeting: Yes Treatment Plan Review - Problem Suicidal Ideation Time Initiated: 17:05 Depression Time Initiated: 17:05 - Discharge / Continuing Care Discharge to:: [facility]: Partial hospital, Intensive Outpatient, Outpatient therapy Health Needs: Medications/Rx, Alcohol/Drug treatment <Sharmila Hartley - Last Filed: 06/24/17 10:25> Treatment Plan Review - Problem Suicidal Ideation Date Initiated: 06/24/17 Time Initiated: 10:25 Progress toward outcomes: improved Depression Date Initiated: 06/24/17 Time Initiated: 10:25 Progress toward outcomes: improved <Debbie Warren - Last Filed: 06/24/17 11:09> - Diagnosis (1) Depression, major, severe recurrence Status: Acute Interventions: 06/24/17 11:09 * Assess/adjust medications daily and /or as needed * See patient on an individual basis 7x/week to assess symptoms of depression * Monitor for side effects & effectiveness of medications * (2) Cocaine use disorder, severe, dependence Status: Acute Interventions: 06/24/17 11:09 * Assess 7x/week regarding severity of withdrawal * Educate regarding risks, benefits, side effects and alternatives of medications * Use Motivational Interviewing for abstinence * Use CBT for relapse prevention * Medication management for withdrawal symptoms * Encourage medication assisted treatment *
--- NOTE | 2017-06-24 11:10 | PCM.PYCHPN ---
Psychiatric Progress Note - Psychiatric Progress Note Patient seen today, length of contact: 15 min Patient Chief Complaint: I am feeling little better.' Problems Identified/Issues Discussed: Patient seen and evaluated, chart reviewed and discussed with the nurse. Patient reports improvement in her irritability and anxiety. As per the staff, pt started coming out of her room and reports improvement in her mood. She still appears depressed. She denies any AVH. She started calling different programs and she is looking forward to going to an IOP. Patient is compliant with medications and denies any side effects. Symptoms are improving but need more time to stabilize. Support and psychoeducation given. Medication Change: No Medical Record Reviewed: Yes Mental Status Examination - Cognitive Function Orientation: Person, Place, Situation, Time Memory: Intact Attention: WNL Concentration: WNL Association: WNL Fund of Knowledge: Poor - Mood Mood: Neutral - Affect Affect: Other (Appropriate) - Speech Speech: Appropriate, Soft - Formal Thought Process Formal Thought Process: No Impairment - Suicidal Ideation Suicidal Ideation: No - Homicidal Ideation Homicidal Ideation: No Goal/Treatment Plan - Goal/Treatment Plan Need for Continued Stay: Remain at risks for inpatient hospitalization, Discharge may exacerbated symptoms, Severe functional impairment Progress Toward Problem(s) and Goals/Treatment Plan: Major depressive disorder, severe, recurrent, with psychotic sxs Cocaine use disorder, severe Abilify 10mg daily Neurontin 300mg BID Remeron 30mg at night Attend groups and activities Individual therapy Psychoeducation and support Encourage compliance with meds and after care Refer to outpatient program Teach healthy lifestyle methods, i.e. diet, exercise, meditation Estimated Date of D/C: 06/27/17 - Smoking Cessation Smoking Cessation Initiated: No
[2017-06-25 06:56] VITALS: BP 99/61; PULSE 54; RESP 20; TEMP 99.6; O2SAT 98
--- NOTE | 2017-06-25 11:07 | PCM.PYCHDC ---
Mental Status Examination - Mental Status Examination Orientation: Person, Place, Situation, Time Memory: Intact Discharge Summary - Discharge Note Consultations:: List each consultation separately and include: 1. Reason for request. 2. Findings. 3. Follow-up Summary of Hospital Course include:: 1. Description of specific treatment plan utilized for patients during their course of treatmen. 2. Summarize the time- course for resolution of acute symptoms and/or regressed behaviors. 3. Describe issues identified and worked on during hospitalization. 4. Describe medication utilized. 5. Describe medical problems identified and treated. 6. Reassessment of suicide risk - Diagnosis (1) Depression, major, severe recurrence Current Visit: No Status: Acute (2) Cocaine use disorder, severe, dependence Current Visit: No Status: Acute - Final Diagnosis (DSM 5) Condition upon Discharge: STABLE Disposition: AGAINST MEDICAL ADVICE Follow-up Treatment Plan: Major depressive disorder, severe, recurrent, with psychotic sxs Cocaine use disorder, severe Abilify 10mg daily Neurontin 300mg BID Remeron 30mg at night Attend groups and activities Individual therapy Psychoeducation and support Encourage compliance with meds and after care Refer to outpatient program Teach healthy lifestyle methods, i.e. diet, exercise, meditation
== END 2017-06-25 11:30 | disposition left against medical advice (07) | DRG 430 ==
LOC: C.ER 12:23 → C.5E 15:51
PROVIDERS: ADMIT Psychiatry & Neurology Psychiatry; ATTEND Psychiatry & Neurology Psychiatry
PROC: GZ56ZZZ Individual Psychotherapy, Supportive (ICD-10-PCS; principal; 2017-06-15)
DX: F33.3 Major depressive disorder, recurrent, severe with psychotic symptoms (principal); F14.20 Cocaine dependence, uncomplicated; F25.0 Schizoaffective disorder, bipolar type; Z59.0 Homelessness; F41.9 Anxiety disorder, unspecified; F17.200 Nicotine dependence, unspecified, uncomplicated